=== PATIENT | male | born 1980 | race African-American/Black ===

== ENCOUNTER 2024-02-03 15:25 | Emergency (ER) | payer SELFPAY ==
[~2024-02-03] VITALS: Ht 172.7 cm; Wt 104.0 kg
[2024-02-03 16:31] VITALS: BP 149/96; PULSE 95; RESP 16; TEMP 98.3; O2SAT 98
[2024-02-03] MEDS ORDERED: NAPR-746 PO (17:30)
== END 2024-02-03 17:30 | disposition home or self-care (01) ==
LOC: ER 15:25
DX: S89.92XA Unspecified injury of left lower leg, initial encounter (principal); S59.901A Unspecified injury of right elbow, initial encounter; S49.92XA Unspecified injury of left shoulder and upper arm, initial encounter; Z79.1 Long term (current) use of non-steroidal anti-inflammatories (NSAID); X58.XXXA Exposure to other specified factors, initial encounter; Y93.67 Activity, basketball; Y92.89 Other specified places as the place of occurrence of the external cause; Y99.8 Other external cause status
CPT/HCPCS: 73030; 73080; 73562